=== PATIENT | male | born 1955 | race African-American/Black ===

== ENCOUNTER 2018-05-20 15:44 | Emergency (ER) | payer MEDICARE, OTHER ==
[~2018-05-20] VITALS: Ht 172.7 cm; Wt 91.0 kg
[2018-05-20] MEDS ORDERED: CLON2TAB PO (15:53)
[2018-05-20] MEDS ORDERED: FLUO-124 PO (15:53)
[2018-05-20] MEDS ORDERED: HYDR25TA PO (15:53)
[2018-05-20] MEDS ORDERED: ATEN-42 PO (15:53)
[2018-05-20] MEDS ORDERED: SODIUM CHLORIDE 0.9% 1,000 ML IV ONE (16:23)
[2018-05-20] MEDS ORDERED: ONDANSETRON HCL 4MG/2ML INJ IV ONE (16:30)
[2018-05-20 17:15] LABS: HEMATOCRIT. 39.5 % (42.0-52.0); HEMOGLOBIN. 13.6 g/dL (14.0-18.0); MEAN CORPUSCULAR HEMOGLOBIN 29.6 pg (28.0-32.0); MEAN CORPUSCULAR VOLUME 86.2 fL (80.0-94.0); MEAN PLATELET VOLUME 8.6 fl (7.4-10.4); PLATELET 121 x1000/uL (130-400); RED BLOOD CELL COUNT 4.59 mill/uL (4.7-6.1); RED CELL DISTRIBUTION WIDTH 13.8 % (11.6-14.6)
[2018-05-20 17:16] LABS: CHLORIDE 105 mEq/L (98-107)
[2018-05-20] MEDS ORDERED: LACTATED RINGERS 1,000 ML IV STA (17:21)
[2018-05-20] MEDS ORDERED: KETOROLAC 30MG/ML VIAL IV ONE (18:45)
[2018-05-20 19:19] LABS: CLARITY URINE CLEAR (CLEAR); COLOR URINE YELLOW (YELLOW); KETONES URINE NEGATIVE (NEGATIVE); LEUKOCYTE ESTERASE URINE NEGATIVE (NEGATIVE); NITRITE URINE NEGATIVE (NEGATIVE); OCCULT BLOOD URINE NEGATIVE (NEGATIVE); PROTEIN URINE NEGATIVE (NEGATIVE); SPECIFIC GRAVITY URINE 1.018 (1.005-1.030)
[2018-05-20 19:23] LABS: PLATELET ESTIMATE SLIGHTLY DECREASED
[2018-05-20 20:00] VITALS: BP 129/67
== END 2018-05-20 20:00 | disposition home or self-care (01) ==
LOC: ER 16:50 → CANBEDREQ 21:20
DX: E86.0 Dehydration (principal); R11.2 Nausea with vomiting, unspecified; R19.7 Diarrhea, unspecified; R51 Headache; R53.1 Weakness; I10 Essential (primary) hypertension; F41.9 Anxiety disorder, unspecified; F32.9 Major depressive disorder, single episode, unspecified
CPT/HCPCS: 36415; 71045; 80053; 81003; 82962; 83605; 83690; 84484; 85025; 93005; 96361; 96374; 96375; 99285; J1885; J2405; J7030; J7120

== ENCOUNTER 2018-05-22 17:49 | Emergency (ER) | payer MEDICARE, OTHER ==
[~2018-05-22] VITALS: Ht 172.7 cm; Wt 91.0 kg
[~2018-05-22 17:49] MED LIST: ATEN-42 PO; CLON2TAB PO; FLUO-124 PO; HYDR25TA PO
[2018-05-22 18:15] VITALS: BP 119/71
== END 2018-05-22 21:00 | disposition left against medical advice (07) ==
LOC: ER 20:46
DX: R10.9 Unspecified abdominal pain (principal); R11.2 Nausea with vomiting, unspecified; R50.9 Fever, unspecified; Z53.21 Procedure and treatment not carried out due to patient leaving prior to being seen by health care provider